=== PATIENT | male | born 1975 | race African-American/Black ===

== ENCOUNTER 2018-06-27 11:07 | Inpatient (IN) ==
[2018-06-27] MEDS ORDERED: Chlorhexidine Gluconate 2% 1 Pack (2 Cloths) TOPICAL ONE (11:45)
[2018-06-27] MEDS ORDERED: Metoprolol Tartrate 25 MG Tablet PO ONE (11:45)
[2018-06-27] MEDS ORDERED: Sodium Chlor 0.9% Inj 500 ML IV.CONT ONE (11:45)
[2018-06-27 12:51] LABS: Baso # (Auto) 0.1 th/mm3 (0.0-0.2); Baso % (Auto) 0.9 % (0.0-2.0); Eos # (Auto) 0.2 th/mm3 (0.0-0.4); Eos % (Auto) 2.4 % (0.0-4.0); Hematocrit 32.2 % (39.0-51.0); Hemoglobin 10.6 gm/dL (13.0-17.0); Lymph # (Auto) 2.2 th/mm3 (1.0-4.8); Lymph % (Auto) 33.5 % (9.0-44.0); Mean Corpuscular Hemoglobin 31.9 pg (27.0-34.0); Mean Corpuscular Volume 96.6 fL (80.0-100.0); Mean Platelet Volume 8.5 fL (7.0-11.0); Mono # (Auto) 0.5 th/mm3 (0.0-0.9); Mono % (Auto) 7.2 % (0.0-8.0); Neut # (Auto) 3.6 th/mm3 (1.8-7.7); Platelet Count 272 th/mm3 (150-450); Red Blood Count 3.34 mil/mm3 (4.50-5.90); Red Cell Distribution Width 19.3 % (11.6-17.2); White Blood Count 6.5 th/mm3 (4.0-11.0)
[2018-06-27 13:07] LABS: Prothrombin Time 11.1 sec (9.8-11.6)
[2018-06-27 13:08] LABS: INR 1.1 Ratio
[2018-06-27 13:21] LABS: Calcium 9.2 mg/dL (8.5-10.1); Carbon Dioxide 24.8 meq/L (21.0-32.0)
[2018-06-27 13:28] LABS: Potassium 6.8 meq/L (3.5-5.1)
--- NOTE | 2018-06-27 14:00 | P.PNVS ---
Subjective Subjective/Hospital Course: Pt w K 6.8. Case cancelled for today and tentatively posted for Thursday 06/28. Medicine and nephrology to be consulted. Objective Vital Signs / I&O: Vital Signs 06/27/18 11:55 Temperature 97.5 F L Pulse Rate 69 Respiratory Rate 20 Blood Pressure 178/95 H Pulse Oximetry 99 Intake & Output 06/26/18 06/27/18 06/27/18 18:59 06:59 18:59 Weight 92.3 kg Other: Weight On Admission 92.3 kg Laboratory Results - last 24 hr 06/27/18 06/27/18 06/27/18 12:13 12:13 12:13 WBC 6.5 RBC 3.34 L Hgb 10.6 L Hct 32.2 L MCV 96.6 MCH 31.9 MCHC 33.0 RDW 19.3 H Plt Count 272 MPV 8.5 Neut % (Auto) 56.0 Lymph % (Auto) 33.5 [place] % (Auto) 7.2 Eos % (Auto) 2.4 Baso % (Auto) 0.9 Neut # (Auto) 3.6 Lymph # (Auto) 2.2 [place] # (Auto) 0.5 Eos # (Auto) 0.2 Baso # (Auto) 0.1 WBC Differential . Differential Comment Auto diff final PT 11.1 INR 1.1 Sodium 138 Potassium 6.8 H* Chloride 104 Carbon Dioxide 24.8 Anion Gap 9 BUN 46 H Creatinine 15.03 H* Estimated GFR 4 L Random Glucose 87 Calcium 9.2 Blood Type Antibody Screen 06/27/18 12:13 WBC RBC Hgb Hct MCV MCH MCHC RDW Plt Count MPV Neut % (Auto) Lymph % (Auto) [place] % (Auto) Eos % (Auto) Baso % (Auto) Neut # (Auto) Lymph # (Auto) [place] # (Auto) Eos # (Auto) Baso # (Auto) WBC Differential Differential Comment PT INR Sodium Potassium Chloride Carbon Dioxide Anion Gap BUN Creatinine Estimated GFR Random Glucose Calcium Blood Type A Positive Antibody Screen Negative
[2018-06-27 14:42] LABS: Calcium 9.3 mg/dL (8.5-10.1); Carbon Dioxide 20.9 meq/L (21.0-32.0)
[2018-06-27 14:54] LABS: Potassium 7.2 meq/L (3.5-5.1)
--- NOTE | 2018-06-27 15:24 | P.CONIM ---
History of Present Illness Reason for Consult: ESRD Primary Care Provider: Isak Shaffer MD Chief Complaint: for AV graft placement History of Present Illness: patient is a 43 y/o male with history of ESRD-on HD,hypertension and HIV- positive, presented to ER for AV graft placement- however due to hyperkalemia, the procedure was cancelled and medicine was consulted. at the time of my evaluation he was resting comfortably with no acute distress, however with on and off nausea. he denies any pain, sob.his last HD was on Wednesday. Review of Systems All other systems reviewed negative except as stated in HPI PMFSH - History History Provided By: Patient - Medical History Medical History: Medical History (Last Updated 06/27/18 @ 15:21 by Nicko Garcia MD) Port-A-Cath in place (Acute) Chronic renal failure, stage 4 (severe) Complication of AV dialysis fistula GERD (gastroesophageal reflux disease) HIV (human immunodeficiency virus infection) Hypertension Port-A-Cath in place - Family History Family History: Family History (Last Reviewed 06/27/18 @ 15:20 by Nicko Garcia MD) Other Kidney failure - Tobacco History Second Hand Smoke Exposure: No Smoking Status: Never smoker - Alcohol History How Often Do You Have a Drink Containing Alcohol: Never - Substance Use History Substance History: No History of Abuse - Travel History Recent Travel in the [place] Within the Last 8 Weeks: No Recent Travel Out of the Country Within the Last 8 Weeks: No Medications and Allergies Active Medications: Active Medications Alprazolam (Xanax) 0.5 mg PO BID KATHE Amlodipine Besylate (Norvasc) 10 mg PO DAILY [facility] Clonidine HCl (Catapres) 0.1 mg PO Q8HR PRN PRN Reason: SBP>180 or DBP >100 Emtricitabine (Emtriva) 200 mg PO Q96H [facility] Lactated Ringer's (Lr 1000 Ml Inj) 1,000 mls @ 30 mls/hr IV.CONT .Q24H ONE Stop: 06/28/18 11:44 Last Admin: 06/27/18 12:27 Dose: Not Given Sodium Chloride (Ns Inj) 500 mls @ 30 mls/hr IV.CONT .[id number] ONE Stop: 06/28/18 04:24 Last Admin: 06/27/18 12:13 Dose: 30 mls/hr Lopinavir/Ritonavir (Kaletra 200/50 Mg) 2 tab PO DAILY [facility] Metoprolol Tartrate (Lopressor) 50 mg PO BID [facility] Ondansetron HCl (Zofran Inj) 4 mg IV.PUSH Q8H PRN PRN Reason: nausea Pantoprazole Sodium (Protonix) 40 mg PO DAILY [facility] Sevelamer Carbonate (Renvela) 800 mg PO TID [facility] Tenofovir Disoproxil Fumarate (Viread) 300 mg PO DAILY [facility] Allergies Allergy/AdvReac Type Severity Reaction Status Date / Time shellfish derived Allergy Severe Anaphylaxis Verified 06/27/18 11:51 Home Medications Medication Instructions Recorded Confirmed Type amlodipine 10 mg PO DAILY 06/24/18 06/27/18 History emtricitabine [Emtriva] 200 mg PO Q96H 06/24/18 06/27/18 History lopinavir-ritonavir [Kaletra] 2 tab PO DAILY 06/24/18 06/27/18 History metoprolol tartrate 50 mg PO BID 06/24/18 06/27/18 History pantoprazole 40 mg PO DAILY 06/24/18 06/27/18 History sevelamer carbonate [Renvela] 800 mg PO TID 06/24/18 06/27/18 History tenofovir disoproxil fumarate 300 mg PO DAILY 06/24/18 06/27/18 History alprazolam 0.5 mg PO BID 06/27/18 06/27/18 History Exam Vital signs: Vital Signs 06/27/18 11:55 Temperature 97.5 F L Pulse Rate 69 Respiratory Rate 20 Blood Pressure 178/95 H Pulse Oximetry 99 Intake & Output 06/26/18 06/27/18 06/27/18 18:59 06:59 18:59 Weight 92.3 kg Other: Weight On Admission 92.3 kg - Constitutional no acute distress - Routine HEENT Exam Eye: Present: PERRL - Routine Respiratory Exam Present: CTA bilaterally - Routine Cardiovascular Exam Present: RRR - Routine Abdominal Exam Present: soft - Routine Extremities Exam Comments: no pedal edema. - Routine Neurological Exam Present: alert, oriented X3 Results - Labs CBC & Chem 7: 06/27/18 12:13 06/27/18 13:35 Labs: Laboratory Results - last 24 hr 06/27/18 06/27/18 06/27/18 12:13 12:13 12:13 WBC 6.5 RBC 3.34 L Hgb 10.6 L Hct 32.2 L MCV 96.6 MCH 31.9 MCHC 33.0 RDW 19.3 H Plt Count 272 MPV 8.5 Neut % (Auto) 56.0 Lymph % (Auto) 33.5 [place] % (Auto) 7.2 Eos % (Auto) 2.4 Baso % (Auto) 0.9 Neut # (Auto) 3.6 Lymph # (Auto) 2.2 [place] # (Auto) 0.5 Eos # (Auto) 0.2 Baso # (Auto) 0.1 WBC Differential . Differential Comment Auto diff final PT 11.1 INR 1.1 Sodium 138 Potassium 6.8 H* Chloride 104 Carbon Dioxide 24.8 Anion Gap 9 BUN 46 H Creatinine 15.03 H* Estimated GFR 4 L Random Glucose 87 Calcium 9.2 Blood Type Antibody Screen 06/27/18 06/27/18 12:13 13:35 WBC RBC Hgb Hct MCV MCH MCHC RDW Plt Count MPV Neut % (Auto) Lymph % (Auto) [place] % (Auto) Eos % (Auto) Baso % (Auto) Neut # (Auto) Lymph # (Auto) [place] # (Auto) Eos # (Auto) Baso # (Auto) WBC Differential Differential Comment PT INR Sodium 135 L Potassium 7.2 H* Chloride 105 Carbon Dioxide 20.9 L Anion Gap 9 BUN 46 H Creatinine 14.98 H* Estimated GFR 4 L Random Glucose 81 Calcium 9.3 Blood Type A Positive Antibody Screen Negative Assessment and Plan - Plan A/P - ESRD- on HD- for AV graft placement- possibly tomorrow; the procedure was cancelled today because of hyperkalemia. Nephrology consulted- following. - Hyperkalemia; will undergo HD today- will repeat the potassium level this evening- nephrology consulted as noted above. of note the patient is on HD; TTS schedule and last HD was on Wednesday. -hypertension; resume home meds- clonidine as needed- -HIV-positive; continue antiretroviral regimen. -DVT prophylaxis; SCD's thank you for the consult. Discussed Condition With: the patient, RN and . Discharge Planning: home; when cleared by vascular surgery and nephrology.
[2018-06-27] MEDS ORDERED: Acetaminophen 325 MG Tablet PO PRN (15:35)
[2018-06-27] MEDS ORDERED: Gelatin 12 MM/7 MM Topical Foam TOPICAL PRN (15:35)
[2018-06-27] MEDS ORDERED: Albumin Human 25% Inj 100 ML IV.SIG PRN (15:35)
[2018-06-27] MEDS ORDERED: Sod Chloride 0.9% Inj 1,000 ML OTHER PRN ×2 (15:35)
[2018-06-27] MEDS ORDERED: Heparin 10,000 UNITS/10 ML Vial (for IV use) OTHER PRN ×2 (15:35)
[2018-06-27] MEDS ORDERED: Sod Chloride 0.9% Inj 1,000 ML IV.CONT PRN (15:35)
--- NOTE | 2018-06-27 16:45 | P.CONNP ---
History of Present Illness Service: Nephrology Consult date: 06/27/18 Requesting Physician: Scott Neely Reason for Consult: End-stage renal disease with hyperkalemia Primary Care Provider: Isak Shaffer MD Chief Complaint: for AV graft placement History of Present Illness: Patient is a 43-year-old -[place] male with history of end-stage renal disease, hypertension, HIV disease, he stated he has a right arm AV access which failed and currently has permacath placement and doing hemodialysis on Wednesday, and Wednesday follows with Dr. Winchester, he was here for AV graft placement On the left side however he was noted to have hyperkalemia initial potassium of 6.8 and repeat 7.2 with slight hemolysis, the third specimen showed a potassium of 6.4, patient stated he may have eaten higher potassium diet over the weekend. He denies any chest pain or shortness of breath he is awake and alert and seen during hemodialysis. Review of Systems Constitutional: Denies anorexia, Denies body ache(s), Denies chills, Denies daytime sleepiness, Denies excessive sweating, Denies fatigue, Denies fever(s), Denies headache(s), Denies increased appetite, Denies lack of energy, Denies malaise, Denies night sweats, Denies weakness, Denies weight gain, Denies weight loss, Denies other Eyes: Denies blind spots, Denies blurry vision, Denies bulging eyes, Denies change in vision, Denies double vision, Denies discharge, Denies dry eyes, Denies floaters, Denies irritation, Denies itchy eyes, Denies loss of vision, Denies pain, Denies requires corrective lenses, Denies sensitivity to light, Denies other Ears, Nose, Mouth, and Throat: Denies abnormal hearing, Denies bleeding gums, Denies bad breath, Denies change in voice, Denies dental pain, Denies difficulty swallowing, Denies dizziness, Denies dry mouth, Denies ear discharge , Denies ear pain, Denies facial pain, Denies headache(s), Denies hearing loss, Denies hoarseness, Denies lip swelling, Denies nosebleed, Denies mouth lesions, Denies mouth pain, Denies nasal congestion, Denies nasal discharge, Denies nasal obstruction, Denies nasal trauma, Denies neck lump, Denies neck pain, Denies nose pain, Denies pain with swallowing, Denies poor balance, Denies post nasal drip, Denies ringing in the ears, Denies sinus pain, Denies sinus pressure , Denies sore throat, Denies throat swelling, Denies tongue swelling, Denies other Respiratory: Denies change in phlegm color, Denies chest congestion, Denies cough, Denies coughing up blood, Denies excessive phlegm production, Denies pain on inspiration, Denies pain with cough, Denies shortness of breath, Denies shortness of breath with activity, Denies snoring, Denies stridor, Denies wheezing, Denies other Gastrointestinal: Denies abdominal pain, Denies belching, Denies black, tarry stools, Denies bloating, Denies bright, red blood in stools, Denies change in bowel habits, Denies constant urge to pass stool, Denies change in stools, Denies coffee ground vomit, Denies constipation, Denies cramping, Denies difficulty swallowing, Denies excessive passing of gas, Denies feeling full early, Denies heartburn, Denies incontinent of stools, Denies loose stools, Denies nausea, Denies pain with swallowing, Denies vomiting, Denies vomiting blood, Denies other Genitourinary: Reports urinary frequency (On hemodialysis) Musculoskeletal: Denies abnormal walking, Denies back pain, Denies body aches, Denies decreased muscle mass, Denies deformity, Denies joint pain, Denies joint swelling, Denies limited joint movement, Denies loss of height, Denies muscle cramps, Denies muscle weakness, Denies neck pain, Denies numbness, Denies radiating pain into limb, Denies stiffness, Denies tingling, Denies other Neurologic: Denies abnormal hearing, Denies abnormal movements, Denies abnormal speech, Denies abnormal walking, Denies behavioral changes, Denies burning sensations, Denies confusion, Denies dizziness, Denies fainting, Denies frequent falls, Denies headache(s), Denies lack of coordination, Denies localized weakness, Denies loss of vision, Denies memory loss, Denies numbness, Denies other visual disturbances, Denies radiating pain, Denies restless legs, Denies convulsions, Denies seizure-like activity, Denies sensory deficit, Denies tingling, Denies tingling/numbness/burning sensations, Denies tremor(s), Denies unsteadiness, Denies weakness, Denies other Psychiatric: Reports other Endocrine: Reports other PMFSH - History History Provided By: Patient - Medical History Medical History: Medical History (Last Reviewed 06/27/18 @ 15:49 by Tommie Yeboah RN) Port-A-Cath in place (Acute) Chronic renal failure, stage 4 (severe) Complication of AV dialysis fistula GERD (gastroesophageal reflux disease) HIV (human immunodeficiency virus infection) Hypertension Port-A-Cath in place - Family History Family History: Family History (Last Reviewed 06/27/18 @ 15:20 by Nicko Garcia MD) Other Kidney failure - Tobacco History Second Hand Smoke Exposure: No Smoking Status: Never smoker - Alcohol History How Often Do You Have a Drink Containing Alcohol: Never - Substance Use History Substance History: No History of Abuse - Travel History Recent Travel in the [place] Within the Last 8 Weeks: No Recent Travel Out of the Country Within the Last 8 Weeks: No Medications and Allergies Active Medications: Active Medications Acetaminophen (Tylenol) 650 mg PO UNSCH PRN PRN Reason: SEE LABEL COMMENTS Alprazolam (Xanax) 0.5 mg PO BID [facility] Amlodipine Besylate (Norvasc) 10 mg PO DAILY [facility] Clonidine HCl (Catapres) 0.1 mg PO Q8HR PRN PRN Reason: SBP>180 or DBP >100 Clonidine HCl (Catapres) 0.1 mg PO UNSCH PRN PRN Reason: SEE LABEL COMMENTS Diphenhydramine HCl (Benadryl) 25 mg PO UNSCH PRN PRN Reason: SEE LABEL COMMENTS Emtricitabine (Emtriva) 200 mg PO Q96H [facility] Epoetin Serafin (Epogen Inj) 4,000 unit IV.PUSH UNSCH PRN PRN Reason: SEE LABEL COMMENTS Gelatin (Gelfoam 12 Mm/7 Mm Topical) 1 foam TOPICAL PRN PRN PRN Reason: help stop bleeding from site Gentamicin Sulfate (Gentamicin Inj) 20 mg OTHER WITH DIALYSIS PRN PRN Reason: Dwell Gentamycin Lock Heparin Sodium (Porcine) (Heparin Inj) 8,000 units OTHER WITH DIALYSIS PRN PRN Reason: for machine prime Heparin Sodium (Porcine) (Heparin Inj) 1,000 units OTHER WITH DIALYSIS PRN PRN Reason: Dwell Heparin to Fill Catheter Lactated Ringer's (Lr 1000 Ml Inj) 1,000 mls @ 30 mls/hr IV.CONT .Q24H ONE Stop: 06/28/18 11:44 Last Admin: 06/27/18 12:27 Dose: Not Given Sodium Chloride (Ns Inj) 500 mls @ 30 mls/hr IV.CONT .[id number] ONE Stop: 06/28/18 04:24 Last Admin: 06/27/18 12:13 Dose: 30 mls/hr Albumin Human (Flexbumin 25% Inj) 100 mls @ 60 mls/hr IV.SIG WITH DIALYSIS PRN PRN Reason: hypotension / volume replace Sodium Chloride (Ns Inj) 1,000 mls @ 0 mls/hr OTHER .Q0M PRN PRN Reason: for prime and rinse back Sodium Chloride (Ns Inj) 1,000 mls @ 200 mls/hr OTHER .Q5H PRN PRN Reason: for dialyzer flush PRN Sodium Chloride (Ns Inj) 1,000 mls @ 0 mls/hr IV.CONT .Q0M PRN PRN Reason: hypotension / volume replace Lopinavir/Ritonavir (Kaletra 200/50 Mg) 1 tab PO BID [facility] Mannitol (Mannitol Inj) 12.5 gm IV.PUSH UNSCH PRN PRN Reason: hypotension / volume replace Metoprolol Tartrate (Lopressor) 50 mg PO BID [facility] Nitroglycerin (Nitrostat Sl) 0.4 mg SL Q5M PRN PRN Reason: CHEST PAIN Ondansetron HCl (Zofran Inj) 4 mg IV.PUSH Q8H PRN PRN Reason: nausea Ondansetron HCl (Zofran Inj) 4 mg IV.PUSH UNSCH PRN PRN Reason: NAUSEA OR VOMITING Pantoprazole Sodium (Protonix) 40 mg PO DAILY [facility] Sevelamer Carbonate (Renvela) 800 mg PO TID [facility] Sodium Chloride (Ns Flush) 5 ml IV.FLUSH PRN PRN PRN Reason: flush each lumen during HD Tenofovir Disoproxil Fumarate (Viread) 300 mg PO Q7D [facility] Allergies Allergy/AdvReac Type Severity Reaction Status Date / Time shellfish derived Allergy Severe Anaphylaxis Verified 06/27/18 11:51 Home Medications Medication Instructions Recorded Confirmed Type amlodipine 10 mg PO DAILY 06/24/18 06/27/18 History emtricitabine [Emtriva] 200 mg PO Q96H 06/24/18 06/27/18 History lopinavir-ritonavir [Kaletra] 2 tab PO DAILY 06/24/18 06/27/18 History metoprolol tartrate 50 mg PO BID 06/24/18 06/27/18 History pantoprazole 40 mg PO DAILY 06/24/18 06/27/18 History sevelamer carbonate [Renvela] 800 mg PO TID 06/24/18 06/27/18 History tenofovir disoproxil fumarate 300 mg PO DAILY 06/24/18 06/27/18 History alprazolam 0.5 mg PO BID 06/27/18 06/27/18 History Exam Vital signs: Vital Signs 06/27/18 11:55 Temperature 97.5 F L Pulse Rate 69 Respiratory Rate 20 Blood Pressure 178/95 H Pulse Oximetry 99 Intake & Output 06/26/18 06/27/18 06/27/18 18:59 06:59 18:59 Weight 92.3 kg Other: Weight On Admission 92.3 kg Narrative: GENERAL: Well-nourished, well-developed patient. SKIN: Warm and dry. HEAD: Normocephalic. EYES: No scleral icterus. No injection or drainage. NECK: Supple, trachea midline. No JVD or lymphadenopathy. CARDIOVASCULAR: Regular rate and rhythm without murmurs, gallops, or rubs. RESPIRATORY: Breath sounds equal bilaterally. No accessory muscle use. GASTROINTESTINAL: Abdomen soft, non-tender, nondistended. EXTREMITIES: Previous failed AV graft right side. NEUROLOGICAL: Awake, alert, and oriented x 3. Non-focal. Results - Lab Results 06/27/18 12:13 06/27/18 15:28 Most recent lab results Calcium 9.3 mg/dL (8.5-10.1) 06/27/18 13:35 Assessment and Plan - Assessment (1) End stage renal disease Code(s): N18.6 - End stage renal disease Status: Acute (2) Hyperkalemia Code(s): E87.5 - Hyperkalemia Status: Acute (3) History of HIV infection Code(s): B20 - Human immunodeficiency virus [HIV] disease Status: Acute (4) Hypertension Code(s): I10 - Essential (primary) hypertension Status: Acute - Plan Patient is seen during hemodialysis, this was arranged emergently as initially reported potassium was 7.2 and repeat potassium was 6.4, he is tolerating it well stated that he is on hemodialysis 8 years, we discussed diet and restrictions, emphasized to avoid high potassium foods in the diet Ultrafiltration of 2 L on 1K bath he is tolerating it well Patient will be scheduled for tomorrow as he goes on Wednesday, and Wednesday for his hemodialysis. AV graft placement per Dr. Neely.
[2018-06-27] MEDS: RITONAVIR PO SCH (20:46)
[2018-06-27] MEDS: LOPINAVIR PO SCH (20:46)
[2018-06-27] MEDS: ALPRAZolam 0.5 MG Tablet PO SCH (20:47)
[2018-06-27] MEDS: Metoprolol Tartrate 50 MG Tablet PO SCH (20:47)
[2018-06-27 23:28] LABS: Calcium 8.7 mg/dL (8.5-10.1); Carbon Dioxide 30.4 meq/L (21.0-32.0); Potassium 4.5 meq/L (3.5-5.1)
[2018-06-28 00:31] LABS: Hepatitis A IgM Antibody Nonreactive (Nonreactive); Hepatitits B Surface Antigen Nonreactive (Nonreactive)
[2018-06-28] MEDS ORDERED: Chlorhexidine Gluconate 2% 1 Pack (2 Cloths) TOPICAL ONE (06:21)
[2018-06-28] MEDS ORDERED: Sodium Chlor 0.9% Inj 500 ML IV.SIG SCH ×2 (07:00)
[2018-06-28] MEDS ORDERED: Heparin 10,000 UNITS/10 ML Vial (for IV use) ONE (07:15)
[2018-06-28] MEDS ORDERED: Bupivacaine PF 0.5% Inj 10 ML Vial ONE (07:15)
[2018-06-28] MEDS ORDERED: Protamine Sulfate Inj 50 MG/5 ML Vial ONE (07:15)
[2018-06-28] MEDS ORDERED: Thrombin Topical 20,000 UNIT Spray Kit TOPICAL ONE (07:16)
[2018-06-28] MEDS ORDERED: Heparin/NS PF Inj 500 ML ONE (07:16)
[2018-06-28] MEDS ORDERED: Sodium Chlor 0.9% Inj 250 ML ONE (07:17)
[2018-06-28] MEDS: amLODIPine 10 MG Tablet PO SCH (09:01)
[2018-06-28] MEDS: Metoprolol Tartrate 50 MG Tablet PO SCH ×2 (09:01→20:42)
[2018-06-28] MEDS ORDERED: Neostigmine Inj 5 MG/5 ML Syringe IV.PUSH ONE (10:30)
[2018-06-28] MEDS ORDERED: Glycopyrrolate Inj 1 MG/5 ML Syringe IV.PUSH ONE (10:30)
[2018-06-28] MEDS ORDERED: hydrALAZINE HCl Inj 20 MG/ML Vial IV.PUSH ONE (10:30)
--- NOTE | 2018-06-28 11:43 | P.OP ---
Date of procedure: 06/28/18 Procedure: LEFT arm brach-ax with PTFE Implants: 6mm PTFE LEFT arm Anesthesia: GETA Surgeon: Scott Neely MD [employer] Machine Operator Helper: Viry Marquez Estimated blood loss (mL): 20 IV fluids (mL): 500 Pathology: none sent Operation and Findings: small artery + Doppler signal in wrist at end of case + thrill in graft
--- NOTE | 2018-06-28 11:44 | P.PNIM ---
Subjective Interval history: f/u; ESRD- hyperkalemia in no acute distress. no new complaints. had HD yesterday. awaiting AV graft placement. Physical Exam Vital signs: Vital Signs 06/27/18 11:55 06/27/18 20:00 06/28/18 00:00 Temperature 97.5 F L 98 F 97.9 F Pulse Rate 69 77 76 Respiratory Rate 20 16 18 Blood Pressure 178/95 H 162/68 H 161/73 H Pulse Oximetry 99 100 97 06/28/18 01:28 06/28/18 04:00 06/28/18 08:00 Temperature 97.8 F 97.3 F L Pulse Rate 77 72 Respiratory Rate 16 18 Blood Pressure 148/62 H 177/92 H Pulse Oximetry 97 98 100 Intake & Output 06/27/18 06/28/18 06/28/18 18:59 06:59 18:59 Intake Total 0 / 0 Output Total 1999 0 / 0 Balance -1999 / -1999 0 / 0 Weight 92.3 kg 88.1 kg Intake: IV 0 / 0 NS Inj 500 ML @ 30 mls/hr IV. 0 / 0 CONT .[id number] ONE Rx#:[id number] Output: Urine 0 / 0 Hemodialysis Amount 1999 Other: Date of Last Bowel Movement 06/27/18 06/27/18 Weight On Admission 92.3 kg - Constitutional no acute distress - Routine Respiratory Exam Present: CTA bilaterally - Routine Cardiovascular Exam Present: RRR - Routine Abdominal Exam Present: soft - Routine Extremities Exam Comments: no pedal edema. - Routine Neurological Exam Present: alert, oriented X3 Results - Labs CBC & Chem 7: 06/27/18 12:13 06/27/18 22:49 Laboratory Results - last 24 hr 06/27/18 06/27/18 06/27/18 12:13 12:13 12:13 WBC 6.5 RBC 3.34 L Hgb 10.6 L Hct 32.2 L MCV 96.6 MCH 31.9 MCHC 33.0 RDW 19.3 H Plt Count 272 MPV 8.5 Neut % (Auto) 56.0 Lymph % (Auto) 33.5 [place] % (Auto) 7.2 Eos % (Auto) 2.4 Baso % (Auto) 0.9 Neut # (Auto) 3.6 Lymph # (Auto) 2.2 [place] # (Auto) 0.5 Eos # (Auto) 0.2 Baso # (Auto) 0.1 WBC Differential . Differential Comment Auto diff final PT 11.1 INR 1.1 Sodium 138 Potassium 6.8 H* Chloride 104 Carbon Dioxide 24.8 Anion Gap 9 BUN 46 H Creatinine 15.03 H* Estimated GFR 4 L Random Glucose 87 Calcium 9.2 Hepatitis A IgM Ab Hep Bs Antigen Hep B Core IgM Ab Hep C IgG Ab Blood Type Antibody Screen 06/27/18 06/27/18 06/27/18 12:13 13:35 15:28 WBC RBC Hgb Hct MCV MCH MCHC RDW Plt Count MPV Neut % (Auto) Lymph % (Auto) [place] % (Auto) Eos % (Auto) Baso % (Auto) Neut # (Auto) Lymph # (Auto) [place] # (Auto) Eos # (Auto) Baso # (Auto) WBC Differential Differential Comment PT INR Sodium 135 L Potassium 7.2 H* 6.4 H D Chloride 105 Carbon Dioxide 20.9 L Anion Gap 9 BUN 46 H Creatinine 14.98 H* Estimated GFR 4 L Random Glucose 81 Calcium 9.3 Hepatitis A IgM Ab Hep Bs Antigen Hep B Core IgM Ab Hep C IgG Ab Blood Type A Positive Antibody Screen Negative 06/27/18 06/27/18 22:49 22:49 WBC RBC Hgb Hct MCV MCH MCHC RDW Plt Count MPV Neut % (Auto) Lymph % (Auto) [place] % (Auto) Eos % (Auto) Baso % (Auto) Neut # (Auto) Lymph # (Auto) [place] # (Auto) Eos # (Auto) Baso # (Auto) WBC Differential Differential Comment PT INR Sodium 143 Potassium 4.5 D Chloride 102 Carbon Dioxide 30.4 D Anion Gap 11 BUN 32 H Creatinine 12.18 H* D Estimated GFR 5 L Random Glucose 136 H Calcium 8.7 Hepatitis A IgM Ab Nonreactive Hep Bs Antigen Nonreactive Hep B Core IgM Ab Nonreactive Hep C IgG Ab Nonreactive Blood Type Antibody Screen Assessment and Plan - Plan A/P - ESRD- on HD- for AV graft placement- possibly today; the procedure was cancelled yesterday because of hyperkalemia. Nephrology consulted- following. - Hyperkalemia; had HD yesterday- hyperkalemia now has resolved. of note the patient is on HD; TTS schedule and last HD was on Wednesday. -hypertension; resumed home meds- clonidine as needed- -HIV-positive; continue antiretroviral regimen. -DVT prophylaxis; SCD's Discharge Planning: home; when cleared by vascular surgery and nephrology.
[2018-06-28] MEDS ORDERED: *morphine SULFATE 4 MG/ML PERIprocedure ONLY ONE ×2 (12:16→12:33)
[2018-06-28] MEDS ORDERED: fentaNYL Citrate Inj 100 MCG/2 ML Ampul ONE (12:19)
[2018-06-28] MEDS ORDERED: *Meperidine Inj 25 MG/ML Vial PERIprocedural Use ONLY ONE (12:20)
--- NOTE | 2018-06-28 12:41 | MP ---
cc: Scott Neely MD DATE OF OPERATION:06/28/18 PREOPERATIVE DIAGNOSIS: End-stage renal disease, multiple failed dialysis access attempts. POSTOPERATIVE DIAGNOSIS: End-stage renal disease, multiple failed dialysis access attempts. PROCEDURE PERFORMED: Left brachial artery to axillary vein arteriovenous graft with 6 mm PTFE. ATTENDING SURGEON: Scott Neely MD OPTICAL INSTRUMENT REPAIRER SURGEON: Viry Marquez. ANESTHESIA: General. INDICATIONS FOR PROCEDURE: Mr. Morrison is a 43-year-old gentleman with multiple failed access attempts. He was taken to the operating room for a prosthetic left upper extremity access. DESCRIPTION OF PROCEDURE: Informed consent was obtained from the patient. He was taken to the operating room and placed supine on the operating table. An appropriate timeout was taken to assure the patient's identity, operative site and planned procedure. The administration of 1 gram of vancomycin was initiated prior to skin incision and will be discontinued after a single preoperative dose. Everyone in the room agreed with timeout and we proceeded. Of note, Vancomycin was chosen because of the patient's end-stage renal disease. His left arm was prepped and draped and an incision was made along the distal upper arm and carried down through subcutaneous tissue with electrocautery. The brachial artery was identified and dissected free for several centimeters. A transverse incision was made in the axilla, carried down through subcutaneous tissue with electrocautery and the axillary vein was similarly identified. A tunnel was then created between 2 mm and 6 mm. PTFE was passed along the tunnel, taking caution not to twist it. The patient was systemically heparinized with 3000 units of IV heparin. Proximal and distal control of the brachial artery was obtained with profunda clamps and a longitudinal arteriotomy was made with an 11-blade, extended with Irvine scissors. The PTFE was spatulated and sewn end-to-side to the brachial artery with running 5-0 Prolene suture. At the completion, it was flushed and noted to be hemostatic. A Jenny Softjaw was placed on the graft and the clamps were released. Hemostasis was achieved. The axillary vein was clamped proximally and distally with profunda clamps and the longitudinal venotomy was made with an 11-blade, extended with Irvine scissors. The graft was spatulated after being cut to an appropriate length and sewn end-to-side to the vein with running 5-0 Prolene suture. At the completion, it was flushed and noted to be hemostatic. There was a thrill in the graft and a Doppler signal in the wrist. The heparin was reversed with protamine. Wounds were made hemostatic, irrigated with thrombin spray, infiltrated with Marcaine and closed with 2-0 Polysorb, 3-0 Polysorb and 4-0 Monocryl. The sponge and needle counts were correct at the end of the case. I was present, scrubbed, and performed the entire procedure. MD GONZALO Puentes/mani , 11:48 AM , 11:55 AM MTDD
--- NOTE | 2018-06-28 13:12 | P.PNNP ---
Subjective Interval history: Patient complain of left arm pain post surgery Physical Exam Vital signs: Vital Signs 06/27/18 20:00 06/28/18 00:00 06/28/18 01:28 Temperature 98 F 97.9 F Pulse Rate 77 76 Respiratory Rate 16 18 Blood Pressure 162/68 H 161/73 H Pulse Oximetry 100 97 97 06/28/18 04:00 06/28/18 08:00 06/28/18 12:10 Temperature 97.8 F 97.3 F L 97.4 F L Pulse Rate 77 72 73 Respiratory Rate 16 18 20 Blood Pressure 148/62 H 177/92 H 174/98 H Pulse Oximetry 98 100 100 06/28/18 12:25 06/28/18 12:45 Temperature Pulse Rate 75 76 Respiratory Rate 18 20 Blood Pressure 167/94 H 159/82 H Pulse Oximetry 100 98 Intake & Output 06/27/18 06/28/18 06/28/18 18:59 06:59 18:59 Intake Total 0 / 0 1250 / 1250 Output Total 1999 0 / 0 Balance -1999 0 / 0 1230 / 1230 Weight 92.3 kg 88.1 kg Intake: IV 0 / 0 750 / 750 Heparin/NS PF Inj 500 ML @ 0 500 / 500 mls/hr .ROUTE .STK-MED ONE Rx#: [id number] NS Inj 250 ML @ 0 mls/hr .ROUTE 250 / 250 .STK-MED ONE Rx#:[id number] NS Inj 500 ML @ 30 mls/hr IV. 0 / 0 CONT .[id number] ONE Rx#:[id number] Anesthesia Amount 500 / 500 Output: Urine 0 / 0 Hemodialysis Amount 1999 Estimated Blood Loss Other: Date of Last Bowel Movement 06/27/18 06/27/18 Weight On Admission 92.3 kg Narrative: GENERAL: Well-nourished, well-developed patient. SKIN: Warm and dry. HEAD: Normocephalic. EYES: No scleral icterus. No injection or drainage. NECK: Supple, trachea midline. No JVD or lymphadenopathy. CARDIOVASCULAR: Regular rate and rhythm without murmurs, gallops, or rubs. RESPIRATORY: Breath sounds equal bilaterally. No accessory muscle use. GASTROINTESTINAL: Abdomen soft, non-tender, nondistended. EXTREMITIES: Postsurgical left arm AV graft NEUROLOGICAL: Awake, alert, and oriented x 3. Non-focal. Assessment and Plan - Assessment (1) End stage renal disease Code(s): N18.6 - End stage renal disease Status: Acute (2) Hyperkalemia Code(s): E87.5 - Hyperkalemia Status: Acute (3) History of HIV infection Code(s): B20 - Human immunodeficiency virus [HIV] disease Status: Acute (4) Hypertension Code(s): I10 - Essential (primary) hypertension Status: Acute - Plan Patient on hemodialysis, he will be back on his scheduled today, continue with Wednesday, and Wednesday Left arm AV graft placement by Dr. Neely. Continue to manage pain Follow blood work potassium did improve post dialysis 1410 pm seen during hemodialysis tolerating it well ultrafiltration on 3 L planned
[2018-06-28] MEDS: Morphine Sulfate Inj 2 MG/ML Vial IV.PUSH PRN ×4 (13:14→22:50)
[2018-06-28] MEDS ORDERED: Morphine Sulfate Inj 2 MG/ML Vial IV.PUSH ONE (13:45)
[2018-06-28] MEDS ORDERED: Morphine Inj 4 MG/ML Vial IV.CONT PRN (13:46)
--- NOTE | 2018-06-28 17:34 | ECG ---
Date Performed: 06/28/2018 Time Performed: 07:32:54 PTAGE: 43 years EKG: Sinus rhythm LEFT ANTERIOR FASCICULAR BLOCK LEFT VENTRICULAR HYPERTROPHY AND ST-T CHANGE ABNORMAL ECG NO PREVIOUS TRACING DOCTOR: Rishi Nath Interpretating Date/Time 06/28/2018 17:32:31
[2018-06-28] MEDS: LOPINAVIR PO SCH ×2 (17:50→20:42)
[2018-06-28] MEDS: RITONAVIR PO SCH ×2 (17:50→20:42)
[2018-06-28] MEDS: ALPRAZolam 0.5 MG Tablet PO SCH ×2 (17:51→20:42)
[2018-06-28] MEDS ORDERED: Tenofovir 300 MG Tablet PO SCH (18:00)
[2018-06-29 05:08] LABS: Hematocrit 37.1 % (39.0-51.0); Hemoglobin 12.3 gm/dL (13.0-17.0); Mean Corpuscular HGB Conc 33.1 % (32.0-36.0); Mean Corpuscular Hemoglobin 31.9 pg (27.0-34.0); Mean Corpuscular Volume 96.3 fL (80.0-100.0); Mean Platelet Volume 8.6 fL (7.0-11.0); Platelet Count 282 th/mm3 (150-450); Red Blood Count 3.85 mil/mm3 (4.50-5.90); Red Cell Distribution Width 19.4 % (11.6-17.2); White Blood Count 8.2 th/mm3 (4.0-11.0)
[2018-06-29 05:36] LABS: Calcium 8.9 mg/dL (8.5-10.1); Carbon Dioxide 24.8 meq/L (21.0-32.0); Potassium 5.6 meq/L (3.5-5.1)
[2018-06-29 08:08] VITALS: RESP 16
[2018-06-29] MEDS: LOPINAVIR PO SCH (09:09)
[2018-06-29] MEDS: amLODIPine 10 MG Tablet PO SCH (09:09)
[2018-06-29] MEDS: ALPRAZolam 0.5 MG Tablet PO SCH (09:09)
[2018-06-29] MEDS: Metoprolol Tartrate 50 MG Tablet PO SCH (09:09)
[2018-06-29] MEDS: RITONAVIR PO SCH (09:09)
--- NOTE | 2018-06-29 10:04 | P.PNVS ---
Subjective Post Op Day #: 1 Procedure: LEFT arm brach-ax with PTFE Subjective/Hospital Course: 43/M with a PMH of ESRD on HD Pt s/p LEFT arm brach-ax with PTFE POD 1 Pain controlled Pt w/o hand pain, numbness or tingling Incisions intact w/o R/D/S + audible thrill Objective Vital Signs / I&O: Vital Signs 06/28/18 12:10 06/28/18 12:25 06/28/18 12:45 Temperature 97.4 F L Pulse Rate 73 75 76 Respiratory Rate 20 18 20 Blood Pressure 174/98 H 167/94 H 159/82 H Pulse Oximetry 100 100 98 06/28/18 16:00 06/28/18 19:45 06/28/18 20:00 Temperature 97.2 F L 98.3 F Pulse Rate 81 104 H Respiratory Rate 18 19 Blood Pressure 137/68 156/74 H Pulse Oximetry 99 99 99 06/29/18 00:00 06/29/18 04:00 06/29/18 08:00 Temperature 98.3 F 98.6 F 97.7 F Pulse Rate 90 77 80 Respiratory Rate 20 19 16 Blood Pressure 158/75 H 142/74 H 187/89 H Pulse Oximetry 96 97 98 06/29/18 08:24 Temperature Pulse Rate Respiratory Rate Blood Pressure Pulse Oximetry 98 Intake & Output 06/28/18 06/29/18 06/29/18 18:59 06:59 18:59 Intake Total 1250 / 1250 461 / 461 Output Total 3020 / 3020 Balance -1770 / -1770 461 / 461 Intake: IV 750 / 750 Heparin/NS PF Inj 500 ML @ 0 500 / 500 mls/hr .ROUTE .STK-MED ONE Rx#: [id number] NS Inj 250 ML @ 0 mls/hr .ROUTE 250 / 250 .STK-MED ONE Rx#:[id number] Oral 461 / 461 Anesthesia Amount 500 / 500 Output: Hemodialysis Amount 3000 / 3000 Estimated Blood Loss Other: # Voids 3 Date of Last Bowel Movement 06/27/18 06/27/18 Exam: + thrill near L UE AVF Incisions intact with surgical glue closure No R/D/O/S near incision sites Palpable R/L Radial pulses Pt w/o hand pain Laboratory Results - last 24 hr 06/28/18 06/29/18 06/29/18 15:01 04:00 04:00 WBC 8.2 RBC 3.85 L Hgb 12.3 L Hct 37.1 L MCV 96.3 MCH 31.9 MCHC 33.1 RDW 19.4 H Plt Count 282 MPV 8.6 Sodium 135 L Potassium 5.6 H D Chloride 95 L Carbon Dioxide 24.8 Anion Gap 15 BUN 33 H Creatinine 11.26 H* Estimated GFR 6 L POC Glucose 121 H Random Glucose 143 H Calcium 8.9 Assessment and Plan - Plan 43/M s/p LEFT arm brach-ax with PTFE Pt doing well Pain controlled Pt w/o hand pain Plan Discussed and reviewed post operative care and management w/ pt Questions answered Pt clear for D/C from a vascular stand point Arranged out pt f/u in 3W Pt made aware of plan Juany Foote NP [facility]/Hydrocapsule [phone]
--- NOTE | 2018-06-29 11:48 | P.PN ---
Subjective Interval history: in no acute distress. no new complaints and wants to go home today. Physical Exam Vital signs: Vital Signs 06/28/18 12:10 06/28/18 12:25 06/28/18 12:45 Temperature 97.4 F L Pulse Rate 73 75 76 Respiratory Rate 20 18 20 Blood Pressure 174/98 H 167/94 H 159/82 H Pulse Oximetry 100 100 98 06/28/18 16:00 06/28/18 19:45 06/28/18 20:00 Temperature 97.2 F L 98.3 F Pulse Rate 81 104 H Respiratory Rate 18 19 Blood Pressure 137/68 156/74 H Pulse Oximetry 99 99 99 06/29/18 00:00 06/29/18 04:00 06/29/18 08:00 Temperature 98.3 F 98.6 F 97.7 F Pulse Rate 90 77 90 Respiratory Rate 20 19 16 Blood Pressure 158/75 H 142/74 H 187/89 H Pulse Oximetry 96 97 98 06/29/18 08:24 Temperature Pulse Rate Respiratory Rate Blood Pressure Pulse Oximetry 98 Intake & Output 06/28/18 06/29/18 06/29/18 18:59 06:59 18:59 Intake Total 1250 / 1250 461 / 461 Output Total 3020 / 3020 Balance -1770 / -1770 461 / 461 Intake: IV 750 / 750 Heparin/NS PF Inj 500 ML @ 0 500 / 500 mls/hr .ROUTE .STK-MED ONE Rx#: [id number] NS Inj 250 ML @ 0 mls/hr .ROUTE 250 / 250 .STK-MED ONE Rx#:[id number] Oral 461 / 461 Anesthesia Amount 500 / 500 Output: Hemodialysis Amount 3000 / 3000 Estimated Blood Loss Other: # Voids 3 Date of Last Bowel Movement 06/27/18 06/27/18 - Constitutional no acute distress - Routine Respiratory Exam Present: CTA bilaterally - Routine Cardiovascular Exam Present: RRR - Routine Abdominal Exam Present: soft - Routine Extremities Exam Comments: no pedal edema. - Routine Neurological Exam Present: alert, oriented X3 Results - Labs CBC & Chem 7: 06/29/18 04:00 06/29/18 04:00 Laboratory Results - last 24 hr 06/28/18 06/29/18 06/29/18 15:01 04:00 04:00 WBC 8.2 RBC 3.85 L Hgb 12.3 L Hct 37.1 L MCV 96.3 MCH 31.9 MCHC 33.1 RDW 19.4 H Plt Count 282 MPV 8.6 Sodium 135 L Potassium 5.6 H D Chloride 95 L Carbon Dioxide 24.8 Anion Gap 15 BUN 33 H Creatinine 11.26 H* Estimated GFR 6 L POC Glucose 121 H Random Glucose 143 H Calcium 8.9 Assessment and Plan - Plan A/P - ESRD- on HD- ; s/p LEFT arm brach-ax with PTFE Nephrology consulted- f/u with vascular surgery as outpatient. - Hyperkalemia; will repeat potassium level today. of note the patient is on HD. -hypertension; resumed home meds- clonidine as needed- -HIV-positive; continue antiretroviral regimen. -DVT prophylaxis; SCD's Discharge Planning: home- today- pending potassium level and nephrology clearance. f/u; pcp, vascular surgery and nephrology. see med list. d/w the patient.
[2018-06-29 13:40] VITALS: BP 170/85; PULSE 72; TEMP 97.4; O2SAT 99
--- NOTE | 2018-06-29 13:59 | P.PNADD ---
Addendum to Inpatient Note Reason for Addendum: Additional Documentation (repeated potassium 5.6; d/w ; one dose of Kayexalate and then the patient can be discharged home; will have HD tomorrow.)
--- NOTE | 2018-06-29 14:00 | P.DS ---
Date of admission: 06/27/18 15:14 Primary care physician: Isak Shaffer MD Brief History from admission: patient is a 43 y/o male with history of ESRD-on HD,hypertension and HIV- positive, presented to ER for AV graft placement- however due to hyperkalemia, the procedure was cancelled and medicine was consulted. at the time of my evaluation he was resting comfortably with no acute distress, however with on and off nausea. he denies any pain, sob.his last HD was on Wednesday. DS: Medications - Discharge Medications Prescriptions: hydromorphone [Dilaudid] 1 mg PO Q4H PRN #14 tab PRN Reason: pain DS: Summary Hospital Course: - ESRD- on HD- ; s/p LEFT arm brach-ax with PTFE Nephrology consulted- f/u with vascular surgery as outpatient. - Hyperkalemia;the patient is on HD. -hypertension; resumed home meds- - Time Spent with Patient Total time spent providing and/or coordinating discharge services: Less than 30 minutes - Quality: VTE Deep Vein Thrombosis/Pulmonary Embolism Present on Admission: No Exam Vital signs: Vital Signs 06/28/18 16:00 06/28/18 19:45 06/28/18 20:00 Temperature 97.2 F L 98.3 F Pulse Rate 81 104 H Respiratory Rate 18 19 Blood Pressure 137/68 156/74 H Pulse Oximetry 99 99 99 06/29/18 00:00 06/29/18 04:00 06/29/18 08:00 Temperature 98.3 F 98.6 F 97.7 F Pulse Rate 90 77 90 Respiratory Rate 20 19 16 Blood Pressure 158/75 H 142/74 H 187/89 H Pulse Oximetry 96 97 98 06/29/18 08:24 06/29/18 12:00 Temperature 97.4 F L Pulse Rate 72 Respiratory Rate 16 Blood Pressure 170/85 H Pulse Oximetry 98 99 Intake & Output 06/28/18 06/29/18 06/29/18 18:59 06:59 18:59 Intake Total 1250 / 1250 461 / 461 Output Total 3020 / 3020 Balance -1770 / -1770 461 / 461 Intake: IV 750 / 750 Heparin/NS PF Inj 500 ML @ 0 500 / 500 mls/hr .ROUTE .STK-MED ONE Rx#: [id number] NS Inj 250 ML @ 0 mls/hr .ROUTE 250 / 250 .STK-MED ONE Rx#:[id number] Oral 461 / 461 Anesthesia Amount 500 / 500 Output: Hemodialysis Amount 3000 / 3000 Estimated Blood Loss Other: # Voids 3 Date of Last Bowel Movement 06/27/18 06/27/18 - Constitutional no acute distress - Routine Respiratory Exam Present: CTA bilaterally - Routine Cardiovascular Exam Present: RRR - Routine Abdominal Exam Present: soft - Routine Extremities Exam Comments: no pedal edema. - Routine Neurological Exam Present: alert, oriented X3 Results Procedures completed during hospitalization: LEFT arm brach-ax with PTFE Labs on day of discharge: Labs from last 24 hours 06/29/18 06/29/18 06/29/18 12:40 04:00 04:00 WBC 8.2 RBC 3.85 L Hgb 12.3 L Hct 37.1 L MCV 96.3 MCH 31.9 MCHC 33.1 RDW 19.4 H Plt Count 282 MPV 8.6 Sodium 135 L Potassium 5.6 H 5.6 H D Chloride 95 L Carbon Dioxide 24.8 Anion Gap 15 BUN 33 H Creatinine 11.26 H* Estimated GFR 6 L POC Glucose Random Glucose 143 H Calcium 8.9 06/28/18 15:01 WBC RBC Hgb Hct MCV MCH MCHC RDW Plt Count MPV Sodium Potassium Chloride Carbon Dioxide Anion Gap BUN Creatinine Estimated GFR POC Glucose 121 H Random Glucose Calcium Discharge Plan - Discharge Disposition Patient Disposition: 01 Discharge Home - Discharge Condition Condition: Good - Discharge Order Discharge Orders: Discharge Order (Routine); Ordered 06/29/18 Ordered By: Nicko Garcia Vascular Surgery Clear for Discharge (Routine); Ordered 06/29/18 Ordered By: Juany Foote - Physicians Team Primary Care Provider: Isak Shaffer Attending Provider: Scott Neely Other Providers: Nicko Garcia MD ; Onesimo Jean MD - Rxs /Orders / Referrals /Forms Prescriptions: New hydromorphone [Dilaudid] 2 mg Tablet 1 mg PO Q4H PRN (Reason: pain ) Qty: 14 RF: 0 Continue alprazolam 0.5 mg Tablet 0.5 mg PO BID amlodipine 10 mg Tablet 10 mg PO DAILY emtricitabine [Emtriva] 200 mg Capsule 200 mg PO Q96H lopinavir-ritonavir [Kaletra] 200-50 mg Tablet 2 tab PO DAILY metoprolol tartrate 50 mg Tablet 50 mg PO BID pantoprazole 40 mg Tablet,Delayed Release (Dr/Ec) 40 mg PO DAILY sevelamer carbonate [Renvela] 800 mg Tablet 800 mg PO TID tenofovir disoproxil fumarate 300 mg Tablet 300 mg PO DAILY Referrals: Scott Neely MD [Physician] - See Instructions (Your post op F/U in scheduled on 07/20/18 at 2:15) Isak Shaffer MD [Primary Care Provider] - See Instructions (Please make a follow up apt with your Primary DrPippa for 1 week from now) - Discharge Instructions Patient Printed Instructions: Hydromorphone (By mouth), Dialysis Diet (DC), Acute Wound Care (DC), Arteriovenous Fistula Creation for Hemodialysis (DC)
[2018-06-29] MEDS ORDERED: Sodium Polystyrene Sulfonate/Sorbitol Liq 15 GM/60 ML UDC PO ONE (14:30)
== END 2018-06-29 14:35 | disposition home or self-care (01) ==
LOC: HSDC 11:07 → HSDI 15:14 → N04 19:15
PROVIDERS: ADMIT Surgery; ATTEND Surgery
PROC: AVGFTUE (ICD-10-PCS; 2018-06-28 10:36)